=== PATIENT | female | born 1985 | race American Indian/Alaskan Native ===

== ENCOUNTER 2016-09-02 00:25 | Emergency (ER) | payer MEDICAID ==
[2016-09-02 00:45] VITALS: BP 114/79
[2016-09-02 01:36] LABS: Creatine Kinase MB 1.5 ng/mL (0.0-4.0)
[2016-09-02 01:38] LABS: Alanine Aminotransferase 14 units/L (7-56); Albumin 3.7 g/dL (3.9-5); Alkaline Phosphatase 54 units/L (35-129); Anion Gap 18 mmol/L; BUN/Creatinine Ratio 11.42; Basophils % (Auto) 0.5 % (0.0-1.8); Blood Urea Nitrogen 8 mg/dL (7-17); Calcium 9.2 mg/dL (8.4-10.2); Carbon Dioxide 24 mmol/L (22-30); Chloride 102.3 mmol/L (98-107); Eosinophils % (Auto) 3.2 % (0.0-4.3); Glucose 113 mg/dL (65-100); Hematocrit 35.3 % (30.3-42.9); Hemoglobin 11.4 gm/dl (10.1-14.3); Mean Corpuscular HGB Conc 32 % (30-34); Mean Corpuscular Hemoglobin 34 pg (28-32); Mean Corpuscular Volume 104 fl (79-97); Platelet Count 238 K/mm3 (140-440); Potassium 4.4 mmol/L (3.6-5.0); Red Cell Distribution Width 13.1 % (13.2-15.2); Sodium 140 mmol/L (137-145); Total Protein 7.4 g/dL (6.3-8.2); White Blood Count 8.1 K/mm3 (4.5-11.0)
[2016-09-02 01:59] LABS: INR 0.95 (0.87-1.13)
[2016-09-02 02:00] LABS: Partial Thromboplastin Time 25.8 Sec. (24.2-36.6)
[2016-09-02 02:53] LABS: Bilirubin,Urine NEG (Negative); Blood,Urine SM (Negative); Ketones,Urine NEG (Negative); Leukocyte Esterase,Urine SM (Negative); Nitrite,Urine NEG (Negative); Protein,Urine <15 mg/dL mg/dL (Negative); Urobilinogen,Urine < 2.0 mg/dL (<2.0)
== END 2016-09-02 02:30 | disposition left against medical advice (07) ==
LOC: ED 00:25
DX: R07.9 Chest pain, unspecified (principal); Z53.21 Procedure and treatment not carried out due to patient leaving prior to being seen by health care provider
CPT/HCPCS: 36415; 80053; 81001; 82140; 82550; 82553; 83690; 83735; 84484; 84703; 85025; 85610; 85730; 93005; 93010

== ENCOUNTER 2017-03-29 18:51 | Emergency (ER) | payer MEDICAID | END 2017-03-29 18:52 | disposition left against medical advice (07) | LOC: ED 18:51 | DX: M54.9 Dorsalgia, unspecified (principal); Z53.21 Procedure and treatment not carried out due to patient leaving prior to being seen by health care provider | CPT/HCPCS: J1815 ==